=== PATIENT | male | born 1985 | race Hispanic/Latino ===

== ENCOUNTER 2018-09-18 17:14 | Emergency (ER) | payer BC, OTHER ==
--- NOTE | 2018-09-18 18:08 | EDPHYS ---
Physician Documentation [facility] Name: Hesham Shaw Age: 32 yrs Sex: Male : 1985 Arrival Date: 09/18/2018 Time: 17:16 Bed 23 Private MD: Pia Oropeza H ED Physician Bethel Mcdowell HPI: 09/18 18:05 This 32 yrs old Male presents to ER via Ambulatory with complaints of Back cp Pain. 18:05 The patient presents with pain that is chronic. The symptoms are located in the low cp back. The pain radiates to the buttocks, right leg and left leg. 18:05 Onset: The symptoms/episode began/occurred chronically. cp 18:05 Associated signs and symptoms: Pertinent positives: bilateral lower extremity cp radiation, Pertinent negatives: abdominal pain, constipation, fever, incontinence, numbness, urinary retention, weakness. Historical: - Allergies: 17:30 No Known Allergies; jl7 - Home Meds: 17:30 Fentanyl Patch Topical [Active]; Tramadol Oral [Active]; jl7 - PMHx: 17:30 spinal stenosis; jl7 - Immunization history:: Adult Immunizations unknown. - Social history:: Smoking status: Patient uses tobacco products, smokes one-half pack cigarettes per day. - Ebola Screening: : No symptoms or risks identified at this time. ROS: 18:10 Constitutional: Negative for body aches, chills, fever, poor PO intake. cp 18:10 Eyes: Negative for injury, pain, redness, and discharge. cp 18:10 Abdomen/GI: Negative for abdominal pain, nausea, vomiting, and diarrhea, anorexia, black/tarry stool, rectal bleeding, bowel incontinence. 18:10 Back: Positive for pain at rest, pain with movement, of the low back area. 18:10 : Negative for flank pain, difficulty urinating, bladder incontinence, testicular pain 18:10 Neuro: Negative for altered mental status, numbness, weakness. 18:10 All other systems are negative. Exam: 18:10 Constitutional: The patient appears in no acute distress, alert, awake, non-toxic, well cp developed, well nourished. 18:10 Head/Face: Normocephalic, atraumatic. cp 18:10 Eyes: Periorbital structures: appear normal, Conjunctiva: normal, no exudate, no injection, Sclera: no appreciated abnormality, Lids and lashes: appear normal, bilaterally. 18:10 ENT: External ear(s): are unremarkable, Nose: is normal, Mouth: Lips: moist, Oral mucosa: pink and intact, moist, Posterior pharynx: is normal, airway is patent, no erythema, no exudate. 18:10 Neck: External neck: is normal, ROM/movement: is normal, is supple, without pain, no range of motions limitations, no nuchal rigidity. 18:10 Chest/axilla: Inspection: normal. 18:10 Cardiovascular: Rate: normal, Rhythm: regular. 18:10 Respiratory: the patient does not display signs of respiratory distress, Respirations: normal, no use of accessory muscles, no retractions, no splinting, no tachypnea, labored breathing, is not present, Breath sounds: are clear throughout, no decreased breath sounds, no stridor, no wheezing. 18:10 Abdomen/GI: Exam negative for discomfort, distension, guarding, Inspection: abdomen appears normal. 18:10 Back: pain, that is moderate, of the low back area, Straight leg raises: of both lower extremities does not illicit pain. 18:10 Skin: cellulitis, is not appreciated, lesion(s), are not present. 18:10 Neuro: Orientation: to person, place \T\ time. Mentation: is normal, Motor: moves all fours, strength is normal, Sensation: no obvious gross deficits, Gait: is steady, Deep tendon reflexes are 2+ (normal) in the right patellar, right Achilles, left patellar and left Achilles. Vital Signs: 17:30 BP 110 / 82; Pulse 75; Resp 16 S; Pulse Ox 100% on R/A; Weight 83.91 kg (R); Height 5 jl7 ft. 10 in. (177.80 cm) (R); Pain 10/10; 17:30 Body Mass Index 26.54 (83.91 kg, 177.80 cm) jl7 MDM: 17:35 Patient medically screened. cp 18:05 Differential diagnosis: Pyelonephritis ruptured disc, spinal injury, sciatica, cauda cp equina, spinal stenosis, sciatica. 18:10 Data reviewed: vital signs, nurses notes, lab test result(s), and as a result, I will cp discharge patient. 18:10 Counseling: I had a detailed discussion with the patient and/or guardian regarding: the cp historical points, exam findings, and any diagnostic results supporting the discharge/admit diagnosis, lab results, the need for outpatient follow up, a family practitioner, a depilatory painter, to return to the emergency department if symptoms worsen or persist or if there are any questions or concerns that arise at home. Response to treatment: the patient's symptoms have mildly improved after treatment, and as a result, I will discharge patient. 09/18 17:33 Order name: Urine Microscopic Only cp 09/18 17:54 Order name: Urine Dipstick--Ancillary (enter results) bd 09/18 17:33 Order name: Urine Dipstick-Ancillary (obtain specimen); Complete Time: 17:54 cp Administered Medications: 18:08 Drug: TORadol 60 mg Route: IM; Site: right ventrogluteal; la1 Disposition: 18:48 Co-signature as Attending Physician, Bethel Mcdowell MD. rn Disposition: 09/18/18 18:08 Discharged to Home. Impression: Radiculopathy, lumbosacral region, Low back pain. - Condition is Stable. - Discharge Instructions: Chronic Back Pain, Lumbosacral Radiculopathy, Back Exercises, [id number]. - Prescriptions for Cyclobenzaprine 10 mg Oral Tablet - take 1 tablet by ORAL route every 8 hours As needed no driving while taking medication; 20 tablet. Medrol (Ranjan) 4 mg Oral Tablets, Dose Pack - take 1 tablet by ORAL route as directed - follow package instructions; 1 packet. - Medication Reconciliation Form, Thank You Letter, Antibiotic Education, Prescription Opioid Use form. - Follow up: Pia Oropeza DO; When: 1 - 2 days; Reason: Recheck today's complaints. - Problem is chronic. - Symptoms have improved. Signatures: Dispatcher [employer] EDMS Bethel Mcdowell MD MD rn Attema, Lee, RN RN la1 Billy Frank PA PA cp Leal, Jahala, RN RN jl7 Corrections: (The following items were deleted from the chart) 18:37 18:08 09/18/2018 18:08 Discharged to Home. Impression: Radiculopathy, lumbosacral la1 region; Low back pain. Condition is Stable. Forms are Medication Reconciliation Form, Thank You Letter, Antibiotic Education, Prescription Opioid Use. Follow up: Pia Oropeza; When: 1 - 2 days; Reason: Recheck today's complaints. Problem is chronic. Symptoms have improved. cp
--- NOTE | 2018-09-18 18:08 | ER ---
Nurse's Notes [facility] Name: Hesham Shaw Age: 32 yrs Sex: Male : 1985 Arrival Date: 09/18/2018 Time: 17:16 Bed 23 Private MD: Pia Oropeza H Diagnosis: Radiculopathy, lumbosacral region;Low back pain Presentation: 09/18 17:25 Presenting complaint: Patient states: Low back pain, has a prescription fentanyl but jl7 the doctor hasn't prescribed a refill and the pain is really bad. I've had a Toradol shot before and it worked. Transition of care: patient was not received from another setting of care. Onset of symptoms was 2017. Risk Assessment: Do you want to hurt yourself or someone else? Patient reports no desire to harm self or others. Initial Sepsis Screen: Does the patient meet any 2 criteria? No. Patient's initial sepsis screen is negative. Does the patient have a suspected source of infection? No. Patient's initial sepsis screen is negative. Care prior to arrival: None. 17:25 Method Of Arrival: Ambulatory [facility] 17:25 Acuity: JOSE 4 jl7 Triage Assessment: 17:30 General: Appears in no apparent distress. uncomfortable, Behavior is cooperative, jl7 anxious. Pain: Complains of pain in low back area Pain currently is 10 out of 10 on a pain scale. Musculoskeletal: Range of motion: limited in back. Historical: - Allergies: 17:30 No Known Allergies; jl7 - Home Meds: 17:30 Fentanyl Patch Topical [Active]; Tramadol Oral [Active]; jl7 - PMHx: 17:30 spinal stenosis; jl7 - Immunization history:: Adult Immunizations unknown. - Social history:: Smoking status: Patient uses tobacco products, smokes one-half pack cigarettes per day. - Ebola Screening: : No symptoms or risks identified at this time. Screenin:54 Abuse screen: Denies threats or abuse. Nutritional screening: No deficits noted. la1 Tuberculosis screening: No symptoms or risk factors identified. Fall Risk None identified. Assessment: 17:53 General: Appears in no apparent distress. Behavior is calm, cooperative. Neuro: Level la1 of Consciousness is awake, alert, obeys commands, Oriented to person, place, time, situation, Gait is steady, Speech is normal, Facial symmetry appears normal. Cardiovascular: Patient's skin is warm and dry. Respiratory: Airway is patent Respiratory effort is even, unlabored. GI: No signs and/or symptoms were reported involving the gastrointestinal system. : No signs and/or symptoms were reported regarding the genitourinary system. Vital Signs: 17:30 BP 110 / 82; Pulse 75; Resp 16 S; Pulse Ox 100% on R/A; Weight 83.91 kg (R); Height 5 jl7 ft. 10 in. (177.80 cm) (R); Pain 10/10; 17:30 Body Mass Index 26.54 (83.91 kg, 177.80 cm) jl7 ED Course: 17:16 Patient arrived in ED. rg4 17:16 Pia Oropeza DO is Private Physician. rg4 17:29 Triage completed. jl7 17:30 Arm band placed on right wrist. EKG completed in triage. Results shown to MD. EKG jl7 completed in triage. Results shown to MD. 17:32 Billy Frank PA is PHCP. cp 17:33 Bethel Mcdowell MD is Attending Physician. cp 17:33 Simon Bhandari RN is Primary Nurse. la1 18:06 Pia Oropeza DO is Referral Physician. cp 18:37 No provider procedures requiring assistance completed. Patient did not have IV access la1 during this emergency room visit. Administered Medications: 18:08 Drug: TORadol 60 mg Route: IM; Site: right ventrogluteal; la1 Outcome: 18:08 Discharge ordered by MD. cp 18:37 Patient left the ED. la1 18:37 Discharged to home ambulatory. la1 18:37 Condition: stable 18:37 Discharge instructions given to patient, Instructed on discharge instructions, follow up and referral plans. medication usage, Demonstrated understanding of instructions, follow-up care, medications, Prescriptions given X 2. Signatures: Simon Bhandari, RN RN la1 Billy Frank PA PA cp Garcia, Rubi rg4 Lev Johnson RN RN jl7
[2018-09-18 18:18] LABS: Urine Bacteria NONE SEEN /HPF (NONE SEEN); Urine RBC NONE SEEN /HPF (NONE SEEN)
[2018-09-18 18:19] LABS: Urine Blood NEGATIVE (NEG); Urine Glucose NEGATIVE (NEG); Urine Protein NEGATIVE (NEG); Urine Specific Gravity 1.015 (1.005-1.030)
[2018-09-18 18:19] LABS: Urine Amorphous Sediment 1+ /HPF (NONE SEEN); Urine Culture Reflex Order NOT NEEDED
== END 2018-09-18 18:37 | disposition home or self-care (01) ==
LOC: ER 17:14
DX: M54.17 Radiculopathy, lumbosacral region (principal); F17.210 Nicotine dependence, cigarettes, uncomplicated
CPT/HCPCS: 81003; 81015; 96372; 99283